=== PATIENT | female | born 1985 | race Asian ===

== ENCOUNTER 2018-10-18 12:58 | Emergency (ER) | payer OTHER ==
--- NOTE | 2018-10-18 15:41 | ED ---
- HPI Summary HPI Summary: Pt. is a 33 y.o female who presents to the ER for vaginal bleeding and mild abd. cramping in earlier . A0. Pt. states she is roughly 11 weeks gestation. She states she passed a blood clot yesterday but bleeding has stopped today. She still notes intermittent lower abd. pain. She denies fever, urinary symptoms. She has no past medical history. She states she saw her OB several weeks ago and had a normal u/s. Pt. concerned for miscarriage. Symptoms are moderate in severity. No current modifying factors. - History of Current Complaint Chief Complaint: EDVaginalBleeding Stated Complaint: 11 WKS /BLEEDING Time Seen by Provider: 10/18/18 15:18 Hx Obtained From: Patient Pain Intensity: 0 - Allergies/Home Medications Allergies/Adverse Reactions: Allergies Allergy/AdvReac Type Severity Reaction Status Date / Time No Known Allergies Allergy Verified 10/18/18 13:05 PMH/Surg Hx/FS Hx/Imm Hx Previously Healthy: Yes Endocrine/Hematology History: Denies: Hx Diabetes Cardiovascular History: Denies: Hx Hypertension, Hx Pacemaker/ICD History: Denies: Hx Renal Disease Sensory History: Denies: Hx Hearing Aid Psychiatric History: Denies: Hx Panic Disorder - Surgical History Surgery Procedure, Year, and Place: 2009- CRANIOTOMY- [facility] AND THEN 2010 - SKULL PIECE REATTACHED. FEEDING TUBE - PRESENT Infectious Disease History: No Infectious Disease History: Denies: Traveled Outside the [place] in Last 30 Days - Family History Known Family History: Positive: Non-Contributory - Social History Occupation: Unemployed Lives: With Family Review of Systems Constitutional: Negative Negative: Fever, Chills Positive: Abdominal Pain. Negative: Vomiting Positive: other - vaginal bleeding.. Negative: dysuria All Other Systems Reviewed And Are Negative: Yes Physical Exam - Physical Exam Triage Information Reviewed: Yes Vital Signs Reviewed: Yes Appearance: Positive: Well-Appearing - Pt. sitting up in bed in NAD. present. Skin: Positive: Warm, Dry Head/Face: Positive: Normal Head/Face Inspection Eyes: Positive: Normal, EOMI Neck: Positive: Supple Respiratory/Lung Sounds: Positive: Clear to Auscultation, Breath Sounds Present Cardiovascular: Positive: Normal, RRR Abdomen Description: Positive: Other: - Abd. is soft with mild tenderness to the suprapubic region. No rebound tenderness or guarding. Neurological: Positive: Normal, CN Intact II-III Diagnostics - Vital Signs Vital Signs Temp Pulse Resp BP Pulse Ox 10/18/18 14:53 98.4 F 62 14 106/58 98 10/18/18 13:00 97.7 F 62 16 111/64 100 - Laboratory Result Diagrams: 10/18/18 16:18 Lab Statement: Any lab studies that have been ordered have been reviewed, and results considered in the medical decision making process. Course/Dx - Course Course Of Treatment: Pt. presenting with an episode of vaginal bleeding and lower abd. pain in early . Pt. notes bleeding has resolved at this time. VS stable. Labs show stable H and H. Blood type AB+. Beta HCG 51638. U/A negative for infection. Reading per radiology: IMPRESSION: There is a single intrauterine gestation with a gestational age of 12 weeks 2. days. Estimated date of delivery is April 30, 2019. Results discussed with pt. To call OB on thursday for close f.u apt. Pelvic rest. To return to eR if sxs change or worsen. Pt. understands and agrees with plan. - Differential Diagnosis/HQI/PQRI: Incomplete , Missed , Spontaneous , Threatened - Diagnoses Provider Diagnoses: Threatened in early Discharge - Sign-Out/Discharge Documenting (check all that apply): Patient Departure - Discharge Plan Condition: Good Disposition: HOME Patient Education Materials: Threatened Miscarriage (ED) Referrals: Teena Meadows MD [Medical Doctor] - Adam Diez MD [Primary Care Provider] - Additional Instructions: Call your OB Thursday to scheduled a close follow up appointment Avoid heavy lifting, sexual intercourse Increase fluids and rest Return to ER if symptoms change or worsen - Billing Disposition and Condition Condition: GOOD Disposition: Home
[2018-10-18 16:16] LABS: Urine Appearance Cloudy; Urine Bacteria Absent (Absent); Urine Bilirubin Negative (Negative); Urine Blood 3+ (Negative); Urine Color Yellow; Urine Glucose Negative (Negative); Urine Ketones Negative (Negative); Urine Nitrite Negative (Negative); Urine Protein Negative (Negative); Urine Red Blood Cell Trace(0-2/hpf) (Absent); Urine Specific Gravity 1.013 (1.010-1.030); Urine Urobilinogen Negative (Negative); Urine White Blood Cell Trace(0-5/hpf) (Absent)
[2018-10-18 16:29] LABS: ABS Basophils 0 10^3/ul (0-0.2); ABS Eosinophils 0 10^3/ul (0-0.6); ABS Lymphocytes 1.4 10^3/ul (1.0-4.8); ABS Monocytes 0.6 10^3/ul (0-0.8); ABS Neutrophils 9.3 10^3/ul (1.5-7.7); ABS Nucleated RBC 0 10^3/ul; Eosinophil % 0.3 %; Hematocrit 40 % (35-47); Hemoglobin 13.5 g/dl (12.0-16.0); Mean Corpuscular HGB Conc 34 g/dl (31-36); Mean Corpuscular Hemoglobin 32 pg (27-31); Mean Corpuscular Volume 94 fL (80-97); Mean Platelet Volume 8.5 fL (7.4-10.4); Nucleated Red Blood Cells % 0; Platelet Count 193 10^3/ul (150-450); Red Blood Count 4.26 10^6/ul (4.00-5.40); Red Cell Distribution Width 13 % (10.5-15); White Blood Count 11.3 10^3/ul (3.5-10.8)
[2018-10-18 17:23] VITALS: BP 121/77
--- NOTE | 2018-10-20 05:41 | PN ---
Progress Note - Progress Note Date of Service: 10/20/18 Note: urine culture grew strept group b 25-50,000. not significant culture so will not treat at this time.
== END 2018-10-18 17:20 | disposition home or self-care (01) ==
LOC: ED 12:58
DX: O20.0 Threatened abortion (principal); Z3A.11 11 weeks gestation of pregnancy
CPT/HCPCS: 36415; 76817; 81003; 81015; 84702; 85025; 86900; 86901; 87077; 87086; 99282

== ENCOUNTER 2018-10-19 08:01 | Emergency (ER) | payer OTHER ==
[2018-10-19 08:55] VITALS: BP 123/66
--- NOTE | 2018-10-19 09:01 | ED ---
- HPI Summary HPI Summary: Patient is a 33-year-old female presenting to the ED with second time in 2 days with concern for threatened miscarriage and vaginal bleeding. She states yesterday she can't into the ED due to spotting and abdominal cramping. A transvaginal US is obtained which shows : "a single intrauterine gestation with a gestational age of 12 weeks in 2 days. Estimated date of delivery is April." She states this morning she passed a blood clot which was larger than the blood clot she passed yesterday. She denies any abdominal pain or further bleeding since she passed a clot early this a.m. She states she feels at her baseline. - History of Current Complaint Chief Complaint: EDOBProblems Stated Complaint: 12 WKS /BLEEDING Time Seen by Provider: 10/19/18 08:06 Hx Obtained From: Patient, Family/Lifter Driver Onset/Duration: Started Hours Ago Severity: Mild Current Severity: None Pain Intensity: 3 Location of Pain: None Character: None - Allergies/Home Medications Allergies/Adverse Reactions: Allergies Allergy/AdvReac Type Severity Reaction Status Date / Time No Known Allergies Allergy Verified 10/18/18 13:05 PMH/Surg Hx/FS Hx/Imm Hx Previously Healthy: Yes Endocrine/Hematology History: Denies: Hx Diabetes Cardiovascular History: Denies: Hx Hypertension, Hx Pacemaker/ICD History: Denies: Hx Renal Disease Sensory History: Denies: Hx Hearing Aid Psychiatric History: Denies: Hx Panic Disorder - Surgical History Surgery Procedure, Year, and Place: 2009- CRANIOTOMY- [facility] AND THEN 2010 - SKULL PIECE REATTACHED. FEEDING TUBE - PRESENT - Immunization History Hx Pertussis Vaccination: No Immunizations Up to Date: Yes Infectious Disease History: No Infectious Disease History: Denies: Traveled Outside the [place] in Last 30 Days - Family History Known Family History: Positive: Non-Contributory - Social History Occupation: Unemployed Lives: With Family Alcohol Use: None Hx Substance Use: No Substance Use Type: Reports: None Hx Tobacco Use: No Smoking Status (MU): Never Smoked Tobacco Review of Systems Negative: Fever, Chills, Fatigue, Skin Diaphoresis Negative: Palpitations, Chest Pain Negative: Shortness Of Breath, Cough Negative: Abdominal Pain, Vomiting, Diarrhea, Nausea Positive: see HPI Negative: Arthralgia, Myalgia Skin: Negative All Other Systems Reviewed And Are Negative: Yes Physical Exam - Physical Exam Triage Information Reviewed: Yes Vital Signs Reviewed: Yes Appearance: Positive: Well-Appearing, Well-Nourished Skin: Positive: Warm, Skin Color Reflects Adequate Perfusion Head/Face: Positive: Normal Head/Face Inspection Eyes: Positive: EOMI, TAYLA, Conjunctiva Clear Neck: Positive: Supple, No Lymphadenopathy Respiratory/Lung Sounds: Positive: Clear to Auscultation, Breath Sounds Present Cardiovascular: Positive: Pulses are Symmetrical in both Upper and Lower Extremities. Negative: Leg Edema Left, Leg Edema Right Abdomen Description: Positive: Nontender, Soft Musculoskeletal: Positive: Normal, Strength/ROM Intact Neurological: Positive: Sensory/Motor Intact, Alert, Oriented to Person Place, Time, Speech Normal Diagnostics - Vital Signs Vital Signs Temp Pulse Resp BP Pulse Ox 10/19/18 08:54 98 F 66 16 123/66 99 10/19/18 08:04 97.3 F 72 20 134/79 98 - Laboratory Lab Statement: Any lab studies that have been ordered have been reviewed, and results considered in the medical decision making process. Course/Dx - Course Course Of Treatment: During the course of treatment, it is noted that ultrasound is not available at this time. Ultrasound was obtained yesterday which showed a viable IUP. For this reason, Doppler obtained which was very faint however picked up a HR at 173. Patient is reassured, however she is to follow up with OBGYN as scheduled and understands to return if she develops any pain or worsening vaginal bleeding. She is asymptomatic at this time. at bedside agrees with plan and they are OK for discharge. - Diagnoses Provider Diagnoses: Vaginal bleeding, Discharge - Sign-Out/Discharge Documenting (check all that apply): Patient Departure - Discharge Plan Condition: Stable Disposition: HOME Referrals: Adam Diez MD [Primary Care Provider] - Additional Instructions: Please return if you develop any pain or bleeding - return to the ED - Billing Disposition and Condition Condition: STABLE Disposition: Home
== END 2018-10-19 08:54 | disposition home or self-care (01) ==
LOC: ED 08:01
DX: O46.91 Antepartum hemorrhage, unspecified, first trimester (principal); Z3A.12 12 weeks gestation of pregnancy
CPT/HCPCS: 99282

== ENCOUNTER 2018-10-19 22:43 | Day surgery (SDC) | payer OTHER ==
--- NOTE | 2018-10-19 23:39 | ED ---
- HPI Summary HPI Summary: Patient is a 33-year-old female who presents emergency department for vaginal bleeding in early . Patient was seen in the ER yesterday and earlier today for vaginal bleeding. She had an ultrasound yesterday which shows a live IUP at 12 weeks. Patient states tonight she passed a large clot and has had increased bleeding with minimal pain. Symptoms are moderate in severity. No current modifying factors. Blood type yesterday noted to be AB+. - History of Current Complaint Chief Complaint: EDVaginalBleeding Stated Complaint: 11 WKS PREG HEAVY BLEEDING Time Seen by Provider: 10/19/18 23:06 Hx Obtained From: Patient Pain Intensity: 0 - Allergies/Home Medications Allergies/Adverse Reactions: Allergies Allergy/AdvReac Type Severity Reaction Status Date / Time No Known Allergies Allergy Verified 10/19/18 22:52 PMH/Surg Hx/FS Hx/Imm Hx Previously Healthy: Yes Endocrine/Hematology History: Denies: Hx Diabetes Cardiovascular History: Denies: Hx Hypertension, Hx Pacemaker/ICD History: Denies: Hx Renal Disease Sensory History: Denies: Hx Hearing Aid Psychiatric History: Denies: Hx Panic Disorder - Surgical History Surgery Procedure, Year, and Place: 2009- CRANIOTOMY- [facility] AND THEN 2010 - SKULL PIECE REATTACHED. FEEDING TUBE - PRESENT Infectious Disease History: No Infectious Disease History: Denies: Traveled Outside the [place] in Last 30 Days - Family History Known Family History: Positive: Non-Contributory - Social History Occupation: Unemployed Lives: With Family Alcohol Use: None Hx Substance Use: No Substance Use Type: Reports: None Hx Tobacco Use: No Smoking Status (MU): Never Smoked Tobacco Review of Systems Positive: Abdominal Pain Positive: other - vaginal bleeding All Other Systems Reviewed And Are Negative: Yes Physical Exam - Physical Exam Triage Information Reviewed: Yes Vital Signs Reviewed: Yes Appearance: Positive: Well-Appearing - Pt. lying in bed in NAD. present. Skin: Positive: Warm, Dry Head/Face: Positive: Normal Head/Face Inspection Eyes: Positive: Normal, EOMI Neck: Positive: Supple Abdomen Description: Positive: Nontender, Soft Pelvic Exam: Other - Exam performed with Dr. Vasquez and nurse. Mild vaginal bleeding with tissue in cervix. Neurological: Positive: Normal, CN Intact II-III Psychiatric: Positive: Affect/Mood Appropriate Diagnostics - Vital Signs Vital Signs Temp Pulse Resp BP Pulse Ox 10/19/18 22:45 98.4 F 80 16 110/68 99 - Laboratory Lab Statement: Any lab studies that have been ordered have been reviewed, and results considered in the medical decision making process. Course/Dx - Course Course Of Treatment: Pt. presenting for ongoing bleeding in early . VS stable. U/S is not available tonight. Bedside u/s performed by Dr. Vasquez. No IUP seen at this time. On speculum exam pt. with debris in cervix. Tissue removed by Dr. Vasquez and bleeding increased. Vaginal canal packed. OB, Dr. Morejon, consulted. Please see Dr. Vasquez's documentation for further care. Pt. signed out to Dr. Vasquez for further care and disposition. - Differential Diagnosis/HQI/PQRI: Incomplete , Missed , Spontaneous , Threatened - Diagnoses Provider Diagnoses: Complete , Vaginal bleeding - Critical Care Time Critical Care Time: 30-74 min - Direct pt. care, consultation. Excludes billable procedures. Discharge - Sign-Out/Discharge Documenting (check all that apply): Patient Departure Signing out patient TO: Brendan Vasquez - Discharge Plan Condition: Stable Disposition: HOME Referrals: Adam Diez MD [Primary Care Provider] - - Billing Disposition and Condition Condition: STABLE Disposition: Home
[2018-10-20] MEDS ORDERED: Methylergonovine INJ* 0.2 MG/ML 1ML AMP IM ONE (01:27)
[2018-10-20] MEDS ORDERED: Misoprostol TAB* 200 MCG PO ONE (01:39)
--- NOTE | 2018-10-20 01:49 | ED ---
Progress - Progress Note Progress Note: I supervised the PA and performed a history and physical exam. Pt is a 33 y/o female with second trimester vaginal bleeding. She is 12 weeks and 4 days by US dates. Pt also c/o cramping. Appearance: Well appearing, no pain distress Skin: warm, dry, reflects adequate perfusion Head/face: normal Eyes: EOMI, TAYLA ENT: mucous membranes moist Neck: supple, non-tender Respiratory: CTA, breath sounds present Cardiovascular: RRR, pulses symmetrical Abdomen: soft, suprapubic tenderness Bowel Sounds: present Musculoskeletal: normal, strength/ROM intact Neuro: normal, sensory motor intact, A&Ox3 : products of conception filling vaginal vault, bleeding after removal Re-Evaluation - Re-Evaluation First Eval Re-Evaluation Time: 02:00 Change: Worse Comment: Pt is now pale and near-syncopal. Second Eval Re-Evaluation Time: 03:10 Change: Unchanged Comment: Pt is still pale and weak. Vaginal vault is filled with blood and a small piece of product of conception. Course/Dx - Course Course Of Treatment: Nurse's notes reviewed. I performed a pelvic exam and found a large amount of products of conception in the cervical os. There is blood and clot in the vault. I removed this and she had pretty extensive bleeding. I packed her with gauze. I discussed the case with the embossing clerk who agrees at intramuscular Methergine and oral Cytotec. Patient attempted to use the restroom and had near syncopal event. She was pale and weak. She dropped her hemoglobin 2 g over the course of a couple hours. Repeat pelvic exam was performed and found the patient was still having good amount of bleeding. The embossing clerk was called back and will take the patient to the operating room. - Diagnoses Provider Diagnoses: Complete , Vaginal bleeding - Provider Notifications Discussed Care Of Patient With: Benji Morejon Time Discussed With Above Provider: 01:35 Instructed by Provider To: Other - Give pt Misoprostol and observe. At 3:58 Dr. Morejon arrived in the ED. He accepts pt for admission and is taking her to the OR for D&E. - Critical Care Time Critical Care Time: 30-74 min - CCT is EXCLUSIVE of separately billable procedures. Discharge - Sign-Out/Discharge Documenting (check all that apply): Patient Departure - Admit - Discharge Plan Condition: Guarded Disposition: ADMITTED TO [facility] Referrals: Adam Diez MD [Primary Care Provider] - - Billing Disposition and Condition Condition: GUARDED Disposition: Admitted to [facility] - Attestation Statements Document Initiated by Darnell: Yes Documenting Scribe: Nancy Nicholas Provider For Whom Darnell is Documenting (Include Credential): Brendan Vasquez MD Scribe Attestation: Nancy Nino, scribed for Brendan Vasquez MD on 10/20/18 at 0450. Scribe Documentation Reviewed: Yes Provider Attestation: The documentation as recorded by the Nancy gibbons accurately reflects the service I personally performed and the decisions made by , Brendan Vasquez MD Status of Scribe Document: Viewed
[2018-10-20] MEDS ORDERED: NS 0.9% 1000 ML* 1,000 ML IV ONE (02:05)
[2018-10-20 02:17] LABS: ABS Basophils 0 10^3/ul (0-0.2); ABS Eosinophils 0 10^3/ul (0-0.6); ABS Lymphocytes 1.4 10^3/ul (1.0-4.8); ABS Monocytes 0.6 10^3/ul (0-0.8); ABS Neutrophils 7.9 10^3/ul (1.5-7.7); ABS Nucleated RBC 0 10^3/ul; Eosinophil % 0.5 %; Hematocrit 37 % (35-47); Hemoglobin 12.3 g/dl (12.0-16.0); Lymphocyte % 13.6 %; Mean Corpuscular HGB Conc 34 g/dl (31-36); Mean Corpuscular Hemoglobin 32 pg (27-31); Mean Corpuscular Volume 94 fL (80-97); Mean Platelet Volume 9.3 fL (7.4-10.4); Nucleated Red Blood Cells % 0; Platelet Count 177 10^3/ul (150-450); Red Blood Count 3.92 10^6/ul (4.00-5.40); Red Cell Distribution Width 13 % (10.5-15)
[2018-10-20 02:34] LABS: ABS Basophils 0 10^3/ul (0-0.2); ABS Eosinophils 0 10^3/ul (0-0.6); ABS Lymphocytes 1.4 10^3/ul (1.0-4.8); ABS Monocytes 0.6 10^3/ul (0-0.8); ABS Neutrophils 9.5 10^3/ul (1.5-7.7); ABS Nucleated RBC 0 10^3/ul; Eosinophil % 0.2 %; Hematocrit 31 % (35-47); Hemoglobin 10.3 g/dl (12.0-16.0); Lymphocyte % 11.9 %; Mean Corpuscular HGB Conc 33 g/dl (31-36); Mean Corpuscular Hemoglobin 31 pg (27-31); Mean Corpuscular Volume 94 fL (80-97); Mean Platelet Volume 8.7 fL (7.4-10.4); Nucleated Red Blood Cells % 0; Platelet Count 145 10^3/ul (150-450); Red Blood Count 3.32 10^6/ul (4.00-5.40); Red Cell Distribution Width 13 % (10.5-15); White Blood Count 11.5 10^3/ul (3.5-10.8)
[2018-10-20 02:41] LABS: Activated Partial Thrombo Time 26.3 seconds (26.0-36.3); INR 1.02 (0.77-1.02)
[2018-10-20 02:47] LABS: BUN/Creatinine Ratio 8.6 (8-20); Calcium 8.1 mg/dL (8.6-10.3); Potassium 3.7 mmol/L (3.5-5.0)
[2018-10-20] MEDS ORDERED: fentaNYL* 50 MCG/ML 2 ML VIAL (100 MCG VIAL) ONE (05:03)
[2018-10-20] MEDS ORDERED: KETAMINE HCL* 50 MG/ML 10 ML VIAL ONE (05:03)
[2018-10-20] MEDS ORDERED: Midazolam* 1 MG/ML 2 ML VIAL (2 MG) ONE (05:03)
[2018-10-20] MEDS ORDERED: Phenylephrine INJ* 10 MG/ML 1 ML VIAL (10 MG) ONE (06:05)
[2018-10-20] MEDS ORDERED: EPHEDrine (Pressors)* 50 MG/ML VIAL ONE (06:05)
[2018-10-20] MEDS ORDERED: Chloroprocaine 2%* 20 ML VIAL ONE (06:05)
[2018-10-20] MEDS ORDERED: Propofol* 10 MG/ML 20 ML BTL ONE (06:05)
[2018-10-20] MEDS ORDERED: Morphine VIAL* 4 MG/ML VIAL (1 ml vial) IV PRN (06:23)
[2018-10-20] MEDS ORDERED: Naloxone* 0.4 MG/ML 1 ML VIAL IV PRN (06:23)
[2018-10-20] MEDS ORDERED: Ondansetron INJ* 2 MG/ML VIAL IV PRN (06:23)
[2018-10-20] MEDS ORDERED: fentaNYL* 50 MCG/ML 2 ML VIAL (100 MCG VIAL) IV PRN (06:23)
[2018-10-20] MEDS ORDERED: Nalbuphine* 10 MG/ML 1 ML VIAL IV PRN (06:23)
[2018-10-20] MEDS ORDERED: oxyCODONE/Acetamin 5/325 MG* TAB PO PRN (06:23)
[2018-10-20] MEDS ORDERED: Ketorolac INJ* 30 MG/ML 1 ML VIAL IV PRN (06:23)
[2018-10-20] MEDS ORDERED: DiMENhydriNATE IV* 50 MG/ML VIAL IV PUSH PRN (06:23)
[2018-10-20 08:39] VITALS: BP 110/63
--- NOTE | 2018-10-23 15:40 | OP ---
OPERATIVE REPORT: DATE OF OPERATION: 10/20/18 DATE OF : 83 SURGEON: Dr. Morejon. ANESTHESIA: Spinal. PRE-OP DIAGNOSIS: Incomplete at 12 weeks estimated gestational age. POST-OP DIAGNOSIS: Incomplete at 12 weeks estimated gestational age. OPERATIVE PROCEDURE: Dilation and evacuation of products of conception. FINDINGS: Exam under anesthesia revealed a dilated cervix, about 1 cm. The uterus was sounded to 12 cm in an anteverted position with moderate products of conception removed with suction curettage. ESTIMATED BLOOD LOSS: Minimal, less than 5 cc. SPECIMENS SENT TO PATHOLOGY: Endometrial curettings. FLUIDS: She received IV crystalloid fluid. URINE OUTPUT: 300 cc of clear urine. DESCRIPTION OF PROCEDURE: The patient was taken to the operating room where she was identified. She was placed on the operating table where a spinal anesthetic was obtained without difficulty. She wa s then placed in the dorsal lithotomy position, prepped and draped in normal sterile fashion. At thi s point, a weighted speculum was inserted into the patient's vagina. The cervix was noted to be dila charisma. A single-tooth tenaculum was used to grasp the cervix anteriorly. The uterus was then sounded. It was noted to be 12 cm in length and in an anteverted position. At this point, I introduced a 12 curved suction curette through the cervix. This was attached to suction and a suction curettage was then performed. Once the uterus was deemed to be emptied of products of conception, the suction cure tte was removed and a sharp curettage was followed to confirm complete denudation of the endometrial lining and after this was done, all the instruments were removed from the patient's vagina. Sponge, lap, and needle counts were correct x2. The single-tooth tenaculum was removed from the cervix. The patient tolerated the procedure well. She was then transferred to recovery room area in stable cond ion. [id number]/[facility]– [place] #: [id number]
== END 2018-10-20 08:44 | disposition home or self-care (01) ==
LOC: ED 22:43 → OR 10-20 06:14
PROVIDERS: ATTEND Obstetrics & Gynecology
DX: O03.4 Incomplete spontaneous abortion without complication (principal); N93.9 Abnormal uterine and vaginal bleeding, unspecified; N94.89 Other specified conditions associated with female genital organs and menstrual cycle
CPT/HCPCS: 36415; 62323; 80048; 84702; 85025; 85610; 85730; 86850; 86900; 86901; 88305; 99284; A9270-GY; J2210; J2250; J2400; J2704; J3010